=== PATIENT | male | born 1995 | race African-American/Black ===

== ENCOUNTER 2018-03-02 14:27 | Emergency (ER) | payer SELFPAY | END 2018-03-02 16:21 | disposition home or self-care (01) | LOC: ERS 14:27 | DX: K02.9 Dental caries, unspecified (principal); E11.9 Type 2 diabetes mellitus without complications; I10 Essential (primary) hypertension; Z87.891 Personal history of nicotine dependence; Z79.84 Long term (current) use of oral hypoglycemic drugs | CPT/HCPCS: 99282 ==

== ENCOUNTER 2021-08-19 16:27 | Emergency (ER) | payer OTHER ==
[2021-08-19] MEDS ORDERED: Ibuprofen 800 MG TAB ONE (17:11)
[2021-08-19] MEDS ORDERED: Bacitracin 1 PK ONE (17:11)
== END 2021-08-19 18:04 | disposition home or self-care (01) ==
LOC: ERS 16:27
DX: S80.12XA Contusion of left lower leg, initial encounter (principal); F17.210 Nicotine dependence, cigarettes, uncomplicated; E11.9 Type 2 diabetes mellitus without complications; I10 Essential (primary) hypertension; Z79.84 Long term (current) use of oral hypoglycemic drugs; V89.2XXA Person injured in unspecified motor-vehicle accident, traffic, initial encounter